=== PATIENT | male | born 1960 | race Caucasian/White ===

== ENCOUNTER 2021-09-15 04:07 | Emergency (ER) | payer MEDICAID ==
[~2021-09-15] VITALS: Ht 167.6 cm; Wt 100.0 kg
[2021-09-15] MEDS ORDERED: KETOROLAC 30MG/ML VIAL IM ONE ×2 (04:45→09:15)
[2021-09-15] MEDS ORDERED: CYCLOBENZAPRINE 10MG TABLET PO ONE ×2 (04:45→09:15)
[2021-09-15] MEDS ORDERED: LORAZEPAM 1MG TABLET PO ONE (08:00)
[2021-09-15] MEDS ORDERED: METH-653 MT (09:59)
[2021-09-15] MEDS ORDERED: IBUP-2028 MT (09:59)
[2021-09-15 10:35] VITALS: BP 153/75
== END 2021-09-15 10:35 | disposition home or self-care (01) ==
LOC: ER 04:07
DX: G89.29 Other chronic pain (principal); M54.50 Low back pain, unspecified; I10 Essential (primary) hypertension; Z95.0 Presence of cardiac pacemaker; Z88.8 Allergy status to other drugs, medicaments and biological substances; Z79.899 Other long term (current) drug therapy
CPT/HCPCS: 96372; 99283; J1885

== ENCOUNTER 2021-10-01 12:02 | Emergency (ER) | payer MEDICAID ==
[~2021-10-01] VITALS: Ht 167.6 cm; Wt 110.0 kg
[~2021-10-01 12:02] MED LIST: IBUP-2028 MT; METH-653 MT
[2021-10-01 12:52] LABS: BASOPHILS % 0.9 % (0.0-2.0); EOSINOPHILS % 3.9 % (0.0-5.0); HEMATOCRIT. 43.9 % (42.0-52.0); HEMOGLOBIN. 14.5 g/dL (14.0-18.0); LYMPHOCYTES % 12.8 % (20.0-50.0); MEAN CORPUSCULAR VOLUME 94.1 fL (80.0-94.0); MEAN PLATELET VOLUME 7.7 fl (7.4-10.4); MONOCYTES % 10.9 % (2.0-8.0); NEUTROPHILS % 71.5 % (40.0-76.0); PLATELET 446 x1000/uL (130-400); RED BLOOD CELL COUNT 4.67 mill/uL (4.7-6.1); RED CELL DISTRIBUTION WIDTH 13.6 % (11.6-14.6)
[2021-10-01 12:57] LABS: CHLORIDE 104 mEq/L (98-107)
[2021-10-01] MEDS ORDERED: CEFTRIAXONE 1 G PREMIX 50 ML IV ONE (15:45)
[2021-10-01] MEDS ORDERED: AZITHROMYCIN 500 MG in DEXT 5% WATER 250 ML IV SCH (15:45)
[2021-10-01] MEDS ORDERED: KETOROLAC 15MG/ML VIAL IV ONE (15:45)
[2021-10-01] MEDS ORDERED: AZITHROMYCIN 500MG/250ML 250 ML IV NR (19:45)
[2021-10-01 21:46] VITALS: BP 160/90
== END 2021-10-01 21:57 | disposition short-term general hospital (02) ==
LOC: ER 12:02
DX: J15.9 Unspecified bacterial pneumonia (principal); J91.8 Pleural effusion in other conditions classified elsewhere; I10 Essential (primary) hypertension; I69.354 Hemiplegia and hemiparesis following cerebral infarction affecting left non-dominant side; Z20.822 Contact with and (suspected) exposure to COVID-19; Z95.0 Presence of cardiac pacemaker; Z88.5 Allergy status to narcotic agent
CPT/HCPCS: 36415; 71045; 71275; 80053; 83880; 84484; 85025; 87426; 96365; 96367; 99285; J0456; J0696; J1885; J7060

== ENCOUNTER 2022-01-15 15:35 | Emergency (ER) | payer MEDICAID, OTHER ==
[~2022-01-15] VITALS: Ht 172.7 cm; Wt 105.0 kg
[2022-01-15 16:52] LABS: BASOPHILS % 0.5 % (0.0-2.0); EOSINOPHILS % 0.6 % (0.0-5.0); HEMATOCRIT. 48.9 % (42.0-52.0); HEMOGLOBIN. 16.2 g/dL (14.0-18.0); LYMPHOCYTES % 12.9 % (20.0-50.0); MEAN CORPUSCULAR HEMOGLOBIN 30.6 pg (28.0-32.0); MEAN CORPUSCULAR VOLUME 92.3 fL (80.0-94.0); MEAN PLATELET VOLUME 8.7 fl (7.4-10.4); MONOCYTES % 7.7 % (2.0-8.0); NEUTROPHILS % 78.3 % (40.0-76.0); PLATELET 264 x1000/uL (130-400); RED CELL DISTRIBUTION WIDTH 14.1 % (11.6-14.6)
[2022-01-15 16:59] LABS: CHLORIDE 101 mEq/L (98-107)
[2022-01-15] MEDS ORDERED: CYCLOBENZAPRINE 10MG TABLET PO ONE (18:00)
[2022-01-15] MEDS ORDERED: CYCLOBENZAPRINE 10MG TABLET PO SCH (18:15)
[2022-01-15] MEDS ORDERED: LIDOCAINE 5% PATCH TOP SCH (19:15)
[2022-01-15] MEDS ORDERED: LABETALOL 5MG/ML SYR 20 MG/4 ML SYRINGE IV ONE (19:15)
[2022-01-15] MEDS ORDERED: HYDROCODONE/ACETAMINOPHEN 10/325MG TABLET PO ONE (19:15)
[2022-01-15] MEDS ORDERED: LABETALOL 5MG/ML SYR 20 MG/4 ML SYRINGE IV SCH (20:00)
[2022-01-15] MEDS ORDERED: IOHEXOL-350 100 ML BOTTLE ONE (22:07)
[2022-01-16 00:43] VITALS: BP 145/87
== END 2022-01-16 03:25 | disposition short-term general hospital (02) ==
LOC: ER 15:51
DX: R07.89 Other chest pain (principal); G89.29 Other chronic pain; I11.9 Hypertensive heart disease without heart failure; J45.909 Unspecified asthma, uncomplicated; R62.7 Adult failure to thrive; Z86.73 Personal history of transient ischemic attack (TIA), and cerebral infarction without residual deficits; Z68.35 Body mass index [BMI] 35.0-35.9, adult; Z75.1 Person awaiting admission to adequate facility elsewhere; Z95.0 Presence of cardiac pacemaker; Z88.5 Allergy status to narcotic agent
CPT/HCPCS: 36415; 71045; 71275; 80053; 83880; 84484; 85025; 93005; 96374; 99285; J3490; Q9967

== ENCOUNTER 2023-08-21 18:13 | Emergency (ER) | payer OTHER ==
[~2023-08-21] VITALS: Ht 172.7 cm; Wt 104.0 kg
[2023-08-21 18:31] VITALS: PULSE 103; O2SAT 96
[2023-08-21] MEDS ORDERED: TETANUS, DIPHTHERIA, PERTUSSIS VAC/PF 0.5ML (>10YR OLD) IM ONE (19:30)
[2023-08-21] MEDS ORDERED: LIDOCAINE HCL/PF 1% 10 MG/ML 5ML VIAL INFIL ONE (19:30)
[2023-08-21] MEDS ORDERED: BACITRACIN ZINC OINT UDPKT TOP ONE (19:30)
[2023-08-21 21:01] VITALS: BP 161/114; RESP 22; TEMP 98.6
== END 2023-08-21 21:04 | disposition home or self-care (01) ==
LOC: ER 18:13
DX: S61.210A Laceration without foreign body of right index finger without damage to nail, initial encounter (principal); J45.909 Unspecified asthma, uncomplicated; I10 Essential (primary) hypertension; Z87.01 Personal history of pneumonia (recurrent); Z86.73 Personal history of transient ischemic attack (TIA), and cerebral infarction without residual deficits; Z95.0 Presence of cardiac pacemaker; W26.9XXA Contact with unspecified sharp object(s), initial encounter; Y93.89 Activity, other specified; Y92.89 Other specified places as the place of occurrence of the external cause; Y99.8 Other external cause status
CPT/HCPCS: 90715; 12002; 90471; 99283; J3490; Z7610 ×3

== ENCOUNTER 2024-12-06 10:43 | Emergency (ER) | payer OTHER, MEDICAID ==
[~2024-12-06] VITALS: Ht 167.6 cm; Wt 90.7 kg
[2024-12-06 10:45] VITALS: TEMP 36.6; O2SAT 96
[2024-12-06 10:46] VITALS: O2SAT 98
[2024-12-06] MEDS ORDERED: IBUP-2029 MT (12:41)
[2024-12-06 12:45] VITALS: BP 160/100; PULSE 115; RESP 16
[2024-12-06] MEDS: KETOROLAC 30MG/ML VIAL IM ONE (12:45)
== END 2024-12-06 13:28 | disposition home or self-care (01) ==
LOC: ER 10:43
DX: M79.671 Pain in right foot (principal); I10 Essential (primary) hypertension; J45.909 Unspecified asthma, uncomplicated; Z86.73 Personal history of transient ischemic attack (TIA), and cerebral infarction without residual deficits; Z88.5 Allergy status to narcotic agent; Z95.0 Presence of cardiac pacemaker; Z79.899 Other long term (current) drug therapy; Z98.890 Other specified postprocedural states
CPT/HCPCS: 99283; 73630; 96372; J1885